=== PATIENT | male | born 1990 | race Caucasian/White ===

== ENCOUNTER 2024-01-21 09:39 | Outpatient (AMB) | payer OTHER, SELFPAY ==
--- NOTE | 2024-01-21 09:43 | MHC.PC.OV ---
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 Allergies No Known Allergies Allergy (Verified 01/21/24 09:44) Medication List - Last Reconciled 01/21/24 by Azul Sheldon MD No Known Home Meds Tobacco use date assessed: 01/21/24 Dental Screening Dental Screen Date: 01/21/24 Did you have a dental visit in the last 12 months?: Yes Did you have a dental problem in the last 6 months where you did not have access to dental care?: No Was dental information given to patient?: No ([place] declined [place] ) HPI HPI Comments History of Present Illness Details This is a 33 year old male with a past medical history of hyperlipidemia, low vitamin D presenting to [facility] and for physical exam Patient reports some improvement with last cholesterol profile but he notes this is due. Previously with low vitamin D. Stopped supplement when ran out (quite a while ago) Has trouble getting enough hours of sleep. Generally trouble staying asleep with ok sleep onset. Not snoring. Generally getting about 5 hours. Does have fatigue at times. Has tried otc medications without significant improvement. COUNTS INCLUDE 234 BEDS AT THE [facility] Social History (Updated 01/21/24 @ 09:47 by Divya Vincent CMA) Housing: House Patient Tobacco Use Status: Former Tobacco user Cigarettes Per Day: 0.5 Years Smoked: 5 e-Cigarette/Vaping Use: Currently Using Second Hand Smoke Exposure: No service: No Current occupational status: employed Current occupation: Cheif Current occupational exposures/hazards: No Cognitive needs: No Hearing needs: No Vision needs: No Questionnaire PHQ-9 Over the last 2 weeks, how often have you been bothered by any of the following problems? 1. Little interest or pleasure in doing things: several days 2. Feeling down, depressed, or hopeless: not at all 3. Trouble falling or staying asleep, or sleeping too much: nearly every day 4. Feeling tired or having little energy: several days 5. Poor appetite or overeating: not at all 6. Feeling bad about yourself - or that you are a failure or have let yourself or your family down: several days 7. Trouble concentrating on things, such as reading the newspaper or watching television: nearly every day 8. Moving or speaking so slowly that other people could have noticed. Or the opposite - being so fidgety or restless that you have been moving around a lot more than usual: not at all 9. Thoughts that you would be better off or of hurting yourself in some way: not at all Total score: 9 Depression Screening Interpretation: Positive Depression Screening Follow-up: Declines treatment Depression Screening Done: Yes 41509 - PHQ-9 Billing: Yes Source: Developed by Drs. Adrian Viveros, Dona Macario, Escobar Jacobs and colleagues, with an educational coy from [employer]. Thrive Questionnaire Date Thrive assessed: 01/21/24 I am a: Patient What is your living situation today?: I have a steady place to live Within the past 12 months, did the food you bought not last and you didn't have the money to get more?: Never true Within the past 12 months, did you worry whether your food would run out before you got money to buy more?: Never true Do you have trouble paying for medicines?: No Do you have trouble getting transportation to medical appointments?: No Do you have trouble paying your heating and electricity bill?: No Do you have trouble taking care of your child, family member or friend?: No Do you have trouble with day-to-day activities such as bathing, preparing meals, shopping, managing finances, etc.?: No Are you currently unemployed and looking for a job?: No Are you interested in more education?: No Please select the resources that you would like help with: None Currently or been in a relationship where the following occur: no concerns reported THRIVE Score: 0 AUDIT C Alcohol Use Questionnaire (AUDIT-C) 1. How often do you have a drink containing alcohol?: Monthly or less (couple times a year) 2. How many drinks containing alcohol do you have on a typical day when you are drinking?: 1 or 2 3. How often do you have six or more drinks on one occasion?: Never Total Score: 1 ALONSO-7 AMB Questionnaire ALONSO-7 Date ALONSO - 7 assessed: 01/21/24 Feeling nervous, anxious, or on edge: 0 = Not at all Not being able to stop or control worryin = Not at all Worrying too much about different things: 0 = Not at all Trouble relaxin = Not at all Being so restless that it is hard to sit still: 0 = Not at all Becoming easily annoyed or irritable: 1 = Several days Feeling afraid as if something awful might happen: 0 = Not at all Total ALONSO-7 score (0-4 normal; 5-9 mild; 10-14 moderate; 15-21 severe): 1 Source: Developed by Drs. Adrian Viveros, Dona Macario, Escobar Jacobs and colleagues, with an educational coy from [employer]. ALONSO-7 Assessment Billing ALONSO-7 Assessment Tool: ALONSO-7 Assessment 69597 Review of Systems Const Details: ROS CONSTITUTIONAL: Denies weight loss, fever and chills. HEENT: Denies changes in vision and hearing. RESPIRATORY: Denies SOB and cough. CV: Denies palpitations and CP GI: Denies abdominal pain, nausea, vomiting and diarrhea. : Denies dysuria and urinary frequency. MSK: Denies new myalgia and joint pain. SKIN: Denies rash and pruritus. NEUROLOGICAL: Denies headache PSYCHIATRIC: Poor sleep Physical exam (Primary Care) Vital Signs: Last Vital Signs Temp 98 F 01/21/24 09:48 Pulse 78 01/21/24 09:48 Resp 14 01/21/24 09:48 BP 110/78 01/21/24 09:48 Pulse Ox 98 01/21/24 09:48 Oxygen Delivery Method Room Air 01/21/24 09:48 BMI result Body Mass Index 23.8 Tobacco/Smoking Status: Tobacco use Status Tobacco use date assessed 01/21/24 01/21/24 09:53 Patient Tobacco Use Status Former Tobacco user 01/21/24 09:53 e-Cigarette/Vaping Use Currently Using 01/21/24 09:53 PHQ-9: PHQ-9 Score PHQ-9: Total score 9 01/21/24 10:31 Depression Screening Interpretation: Positive Depression Screening Follow-up: Declines treatment Thrive Assessment: Date of Thrive Assessment Date Thrive assessed 01/21/24 01/21/24 09:53 Currently or been in a relationship where the following occur: no concerns reported Const Other: PHYSICAL EXAM: GENERAL: Alert and oriented x 3. NAD EYES: EOMI. Anicteric. HENT: Moist mucous membranes. No scleral icterus. No cervical lymphadenopathy. LUNGS: Clear to auscultation bilaterally. CARDIOVASCULAR: Regular rate and rhythm. No murmur. No JVD. ABDOMEN: Soft, non-tender +bs EXTREMITIES: No edema. Non-tender. SKIN: Scattered nevi. Slight raised 1cm erythemaous lesion right shoulder NEUROLOGIC: No focal neurological deficits. PSYCHIATRIC: Cooperative. Appropriate mood and affect Assessment and Plan Assessment & Plan (1) Physical exam: Code(s): Z00.00 - Encounter for general adult medical examination without abnormal findings Plan: The patient was evaluated today for annual preventive exam He was counseled about healthy lifestyle habits, including: Smoking cessation Limiting alcohol intake Receiving age-appropriate immunizations at recommended intervals Age appropriate screening tests (2) Hyperlipidemia: Code(s): E78.5 - Hyperlipidemia, unspecified Qualifiers: Hyperlipidemia type: mixed hyperlipidemia Qualified Code(s): E78.2 - Mixed hyperlipidemia (3) Low vitamin D level: Code(s): R79.89 - Other specified abnormal findings of blood chemistry (4) Fatigue: Code(s): R53.83 - Other fatigue Qualifiers: Fatigue type: unspecified Qualified Code(s): R53.83 - Other fatigue (5) Poor sleep: Comment: Trial prn trazodone Code(s): Z72.820 - Sleep deprivation (6) Skin lesion: Comment: r/o BCC, squamous-referral placed to dermatology Code(s): L98.9 - Disorder of the skin and subcutaneous tissue, unspecified Orders: Orders TSH reflex Free T4 01/21/24 E78.5 - Hyperlipidemia, unspecified, R53.83 - Other fatigue, R79.89 - Other specified abnormal findings of blood chemistry, Z13.0 - Encounter for screening for diseases of the blood and blood-forming organs and certain disorders involving the immune mechanism, Z13.228 - Encounter for screening for other metabolic disorders, Z72.820 - Sleep deprivation Lipid Panel 01/21/24 E78.5 - Hyperlipidemia, unspecified, R53.83 - Other fatigue, R79.89 - Other specified abnormal findings of blood chemistry, Z13.0 - Encounter for screening for diseases of the blood and blood-forming organs and certain disorders involving the immune mechanism, Z13.228 - Encounter for screening for other metabolic disorders, Z72.820 - Sleep deprivation Complete Blood Count Auto Diff 01/21/24 E78.5 - Hyperlipidemia, unspecified, R53.83 - Other fatigue, R79.89 - Other specified abnormal findings of blood chemistry, Z13.0 - Encounter for screening for diseases of the blood and blood-forming organs and certain disorders involving the immune mechanism, Z13.228 - Encounter for screening for other metabolic disorders, Z72.820 - Sleep deprivation Comprehensive Met. Panel 01/21/24 E78.5 - Hyperlipidemia, unspecified, R53.83 - Other fatigue, R79.89 - Other specified abnormal findings of blood chemistry, Z13.0 - Encounter for screening for diseases of the blood and blood-forming organs and certain disorders involving the immune mechanism, Z13.228 - Encounter for screening for other metabolic disorders, Z72.820 - Sleep deprivation Vitamin D 1,25 dihydroxy 01/21/24 E78.5 - Hyperlipidemia, unspecified, R53.83 - Other fatigue, R79.89 - Other specified abnormal findings of blood chemistry, Z13.0 - Encounter for screening for diseases of the blood and blood-forming organs and certain disorders involving the immune mechanism, Z13.228 - Encounter for screening for other metabolic disorders, Z72.820 - Sleep deprivation Vitamin B12 01/21/24 R53.83 - Other fatigue Referrals Dermatology Referral L98.9 - Disorder of the skin and subcutaneous tissue, unspecified Medications: New trazodone 50 mg PO BEDTIME 90 days PRN 90 tabs 3RF sleep Coding Level of Care Code New Pt Prev Care 18-39yr([id number] Diagnoses Physical exam Z00.00 Mixed hyperlipidemia E78.2 Hyperlipidemia type: mixed hyperlipidemia Low vitamin D level R79.89 Fatigue, unspecified type R53.83 Fatigue type: unspecified Poor sleep Z72.820 Skin lesion L98.9 Additional Codes ALONSO-7 Assessment Billing - ALONSO-7 Assessment Tool: ALONSO-7 Assessment 77875 ([id number])
[2024-01-21 09:48] VITALS: BP 110/78; PULSE 78; RESP 14; TEMP 36.6; O2SAT 98; BMI 23.8
== END 2024-01-21 10:41 | disposition home or self-care (01) ==
PROVIDERS: PCP Internal Medicine; Visit Provider Internal Medicine
DX: Z00.00 Encounter for general adult medical examination without abnormal findings (principal); E78.2 Mixed hyperlipidemia; R79.89 Other specified abnormal findings of blood chemistry; R53.83 Other fatigue; Z72.820 Sleep deprivation; L98.9 Disorder of the skin and subcutaneous tissue, unspecified
CPT/HCPCS: 99385

== ENCOUNTER 2024-01-21 10:54 | Outpatient (REF) | payer OTHER, SELFPAY ==
[2024-01-21 14:40] LABS: MANUAL DIFF FLAG NO
[2024-01-21 14:51] LABS: Basophils Percent Auto 0.4 % (0-2); Eosinophils Absolute Auto 0.1 X10*3/uL (0.0-0.4); Eosinophils Percent Auto 1.2 % (0-4); Hematocrit 43.7 % (42.0-52.0); Hemoglobin 15.2 g/dl (14.0-18.0); Imm Gran Abs Auto 0.01 X10*3/uL (0.00-0.03); Imm Gran Pct Auto 0.2 % (0.0-0.4); Lymphocytes Absolute Auto 1.9 X10*3/uL (1.2-4.9); Mean Corpuscular HGB Conc 34.8 g/dl (31.0-36.0); Mean Corpuscular Hemoglobin 29.7 pg (27.0-33.0); Mean Corpuscular Volume 85.4 fL (80.0-98.0); Mean Platelet Volume 9.5 fL (9.4-12.4); Monocytes Absolute Auto 0.3 X10*3/uL (0.1-1.2); Monocytes Percent Auto 6.9 % (2-11); Neutrophils Absolute Auto 2.6 x10*3/uL (2.0-8.3); Neutrophils Percent Auto 52.3 % (45-73); Platelet Count 337 X10*3/uL (160-400); Red Blood Count 5.12 X10*6/uL (4.60-5.80); Red Cell Distribution Width 11.9 % (11.0-16.0)
[2024-01-21 15:32] LABS: Alanine Aminotransferase 16 U/L (0-40); Albumin Level 4.5 g/dL (3.5-5.0); Alkaline Phosphatase 60 U/L (39-117); Anion Gap 17 (12-20); Aspartate Amino Transferase 16 U/L (5-37); Bilirubin Total 0.4 mg/dL (0.0-1.0); Blood Urea Nitrogen 14 mg/dL (9-16); Calcium 9.7 mg/dL (8.4-10.2); Carbon Dioxide 25 mmol/L (22-29); Chloride 105 mmol/L (96-108); Cholesterol 173 mg/dL (<200); Estimated Glomerular Filt Rate > 60; HDL Cholesterol 46 mg/dL (>40); LDL Cholesterol Calculated 114 mg/dL (<100); Potassium 3.8 mmol/L (3.3-5.1); Sodium 143 mmol/L (135-145); Total Protein 7.4 g/dL (6.5-8.0); Triglycerides 69 mg/dL (<150)
[2024-01-21 15:48] LABS: Vitamin B12 479 pg/mL (200-900)
[2024-01-21 17:56] LABS: Glucose Random 58 mg/dL (60-115)
[2024-01-26 00:43] LABS: VITAMIN D (1,25 OH) D3 110 pg/mL; Vit D (1,25-Dihydroxy) Total 110 pg/mL (18-72); Vitamin D (1,25 OH) D2 <8 pg/mL
== END 2024-01-21 10:55 | disposition home or self-care (01) ==
LOC: HO.WFDLDS 10:54
PROVIDERS: Visit Provider Internal Medicine
DX: Z13.0 Encounter for screening for diseases of the blood and blood-forming organs and certain disorders involving the immune mechanism (principal); Z13.228 Encounter for screening for other metabolic disorders; E78.5 Hyperlipidemia, unspecified; R79.89 Other specified abnormal findings of blood chemistry; R53.83 Other fatigue; Z72.820 Sleep deprivation
CPT/HCPCS: 36415; 80053; 80061; 82607; 82652; 84443; 85025

== ENCOUNTER 2025-02-06 08:29 | Outpatient (AMB) | payer OTHER, SELFPAY ==
--- NOTE | 2025-02-06 08:36 | A.OFFPC_ITS ---
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 Allergies No Known Allergies Allergy (Verified 02/06/25 08:39) Medication List - Last Reconciled 02/06/25 by Azul Sheldon MD lorazepam 1 mg PO DAILY PRN Tobacco use date assessed: 02/06/25 Dental Screening Dental Screen Date: 02/06/25 Did you have a dental visit in the last 12 months?: Yes Did you have a dental problem in the last 6 months where you did not have access to dental care?: No Was dental information given to patient?: Patient has dentist HPI HPI Comments History of Present Illness Details This is a 33 year old male with a past medical history of hyperlipidemia, low vitamin D presenting for physical exam Patient reports some improvement with last cholesterol profile but he notes this is due. Previously with low vitamin D. Stopped supplement when ran out (quite a while ago) Has trouble getting enough hours of sleep. Generally trouble staying asleep with ok sleep onset. Did not like trazodone, gave hangover. Not snoring. Generally getting about 5 hours. Does have fatigue at times. Has tried otc medications without significant improvement. ROS CONSTITUTIONAL: Denies weight loss, fever and chills. HEENT: Denies changes in vision and hearing. RESPIRATORY: Denies SOB and cough. CV: Denies palpitations and CP GI: Denies abdominal pain, nausea, vomiting and diarrhea. : Denies dysuria and urinary frequency. MSK: Denies new myalgia and joint pain. SKIN: Denies rash and pruritus. NEUROLOGICAL: see HPI PSYCHIATRIC: Denies recent changes in mood. PHYSICAL EXAM: GENERAL: Alert and oriented x 3. NAD EYES: EOMI. Anicteric. HENT: Moist mucous membranes. No scleral icterus. No cervical lymphadenopathy. LUNGS: Clear to auscultation bilaterally. CARDIOVASCULAR: Regular rate and rhythm. No murmur. No JVD. ABDOMEN: Soft, non-tender +bs EXTREMITIES: No edema. Non-tender. SKIN: No rashes or lesions. Warm. NEUROLOGIC: No focal neurological deficits. CN II-XII grossly intact PSYCHIATRIC: Cooperative. Appropriate mood and affect FORMERLY [facility], [facility]–1983 Surgical History Status post endovenous radiofrequency ablation (RFA) of saphenous vein Family History Father High cholesterol Mother Diabetes Social History Housing: House Patient Tobacco Use Status: Former Tobacco user Cigarettes Per Day: 0.5 Years Smoked: 5 e-Cigarette/Vaping Use: Currently Using Second Hand Smoke Exposure: No service: No Current occupational status: employed Current occupation: Cheif Current occupational exposures/hazards: No Cognitive needs: No Hearing needs: No Vision needs: No Questionnaire PHQ-9 Over the last 2 weeks, how often have you been bothered by any of the following problems? 1. Little interest or pleasure in doing things: several days 2. Feeling down, depressed, or hopeless: more than half the days 3. Trouble falling or staying asleep, or sleeping too much: several days 4. Feeling tired or having little energy: more than half the days 5. Poor appetite or overeating: not at all 6. Feeling bad about yourself - or that you are a failure or have let yourself or your family down: not at all 7. Trouble concentrating on things, such as reading the newspaper or watching television: not at all 8. Moving or speaking so slowly that other people could have noticed. Or the opposite - being so fidgety or restless that you have been moving around a lot more than usual: not at all 9. Thoughts that you would be better off or of hurting yourself in some way: not at all Total score: 6 Depression Screening Interpretation: Positive Depression Screening Follow-up: New Medication prescribed Depression Screening Done: Yes 40000 - PHQ-9 Billing: Yes Source: Developed by Drs. Adrian Viveros, Dona Macario, Escobar Jacobs and colleagues, with an educational coy from [employer]. Thrive Questionnaire Date Thrive assessed: 02/06/25 I am a: Patient What is your living situation today?: I have a steady place to live Within the past 12 months, did the food you bought not last and you didn't have the money to get more?: Never true Within the past 12 months, did you worry whether your food would run out before you got money to buy more?: Never true Do you have trouble paying for medicines?: No Do you have trouble getting transportation to medical appointments?: No Do you have trouble paying your heating and electricity bill?: No Do you have trouble taking care of your child, family member or friend?: No Do you have trouble with day-to-day activities such as bathing, preparing meals, shopping, managing finances, etc.?: No Are you currently unemployed and looking for a job?: Yes Are you interested in more education?: I choose not to answer this question Please select the resources that you would like help with: None Currently or been in a relationship where the following occur: I choose not to answer THRIVE Score: 0 AUDIT C Alcohol Use Questionnaire (AUDIT-C) 1. How often do you have a drink containing alcohol?: Monthly or less (every two months) 2. How many drinks containing alcohol do you have on a typical day when you are drinking?: 1 or 2 3. How often do you have six or more drinks on one occasion?: Never Total Score: 1 ALONSO-7 AMB Questionnaire ALONSO-7 Date ALONSO - 7 assessed: 02/06/25 Feeling nervous, anxious, or on edge: 0 = Not at all Not being able to stop or control worryin = Not at all Worrying too much about different things: 0 = Not at all Trouble relaxin = Not at all Being so restless that it is hard to sit still: 0 = Not at all Becoming easily annoyed or irritable: 0 = Not at all Feeling afraid as if something awful might happen: 0 = Not at all Total ALONSO-7 score (0-4 normal; 5-9 mild; 10-14 moderate; 15-21 severe): 0 Source: Developed by Drs. Adrian Viveros, Dona Macario, Escobar Jacobs and colleagues, with an educational coy from [employer]. ALONSO-7 Assessment Billing ALONSO-7 Assessment Tool: ALONSO-7 Assessment 01550 Physical exam (Primary Care) Vital Signs: Last Vital Signs Pulse 91 02/06/25 08:41 Resp 14 02/06/25 08:41 BP 98/76 02/06/25 08:41 Pulse Ox 97 02/06/25 08:41 Oxygen Delivery Method Room Air 02/06/25 08:41 BMI result Body Mass Index 26.7 Tobacco/Smoking Status: Tobacco use Status Tobacco use date assessed 02/06/25 02/06/25 08:40 Patient Tobacco Use Status Former Tobacco user 02/06/25 08:36 e-Cigarette/Vaping Use Currently Using 02/06/25 08:36 PHQ-9: PHQ-9 Score PHQ-9: Total score 6 02/06/25 08:48 Depression Screening Interpretation: Positive Depression Screening Follow-up: New Medication prescribed Thrive Assessment: Date of Thrive Assessment Date Thrive assessed 02/06/25 02/06/25 08:48 Currently or been in a relationship where the following occur: I choose not to answer Coding Level of Care Code Est Pt Prev Care 18-39y([id number]) Diagnoses Physical exam Z00.00 Enlarged thyroid E04.9 Fatigue, unspecified type R53.83 Fatigue type: unspecified Low vitamin D level R79.89 Additional Codes ALONSO-7 Assessment Billing - ALONSO-7 Assessment Tool: AOLNSO-7 Assessment [id number] ([id number]) PHQ-9 - 92846 - PHQ-9 Billing: Yes ([id number]) Assessment & Plan Assessment & Plan (1) Physical exam: Code(s): Z00.00 - Encounter for general adult medical examination without abnormal findings Category: Medical (2) Enlarged thyroid: Code(s): E04.9 - Nontoxic goiter, unspecified Category: Medical (3) Fatigue: Code(s): R53.83 - Other fatigue Category: Medical Qualifiers: Fatigue type: unspecified Qualified Code(s): R53.83 - Other fatigue (4) Low vitamin D level: Code(s): R79.89 - Other specified abnormal findings of blood chemistry Category: Medical Plan 34 year old for CPE Interval history reviewed Insomnia-middle of the night wakening-trial lorazepam. [facility] Labs ordered Orders: Orders Complete Blood Count Auto Diff Today E78.2 - Mixed hyperlipidemia, R79.89 - Other specified abnormal findings of blood chemistry, Z00.00 - Encounter for general adult medical examination without abnormal findings Lipid Panel Today E78.2 - Mixed hyperlipidemia, R79.89 - Other specified abnormal findings of blood chemistry, Z00.00 - Encounter for general adult medical examination without abnormal findings Comprehensive Met. Panel Today E78.2 - Mixed hyperlipidemia, R79.89 - Other specified abnormal findings of blood chemistry, Z00.00 - Encounter for general adult medical examination without abnormal findings Vitamin D 25-OH (D2 and D3) Today R79.89 - Other specified abnormal findings of blood chemistry TSH reflex Free T4 Today E04.9 - Nontoxic goiter, unspecified Medications: New lorazepam 1 mg PO DAILY PRN 30 tabs 0RF insomnia
[2025-02-06 08:41] VITALS: BP 98/76; PULSE 91; RESP 14; O2SAT 97; BMI 26.7
== END 2025-02-06 08:56 | disposition home or self-care (01) ==
LOC: HO.HMCFM 08:30
PROVIDERS: PCP Internal Medicine; Visit Provider Internal Medicine
DX: Z00.00 Encounter for general adult medical examination without abnormal findings (principal); E04.9 Nontoxic goiter, unspecified; R53.83 Other fatigue; R79.89 Other specified abnormal findings of blood chemistry

== ENCOUNTER → 2025-02-06 08:29 | Outpatient (BNVA) | payer OTHER, SELFPAY | PROVIDERS: PCP Internal Medicine; Visit Provider Internal Medicine | DX: Z00.00 Encounter for general adult medical examination without abnormal findings (principal); E04.9 Nontoxic goiter, unspecified; R53.83 Other fatigue; R79.89 Other specified abnormal findings of blood chemistry; E78.2 Mixed hyperlipidemia; G47.00 Insomnia, unspecified; Z13.30 Encounter for screening examination for mental health and behavioral disorders, unspecified; Z13.31 Encounter for screening for depression | CPT/HCPCS: 96127 ==